=== PATIENT | male | born 2000 | race Caucasian/White ===

== ENCOUNTER 2020-10-09 22:14 | Emergency (ER) | payer BC ==
[~2020-10-09] VITALS: Ht 178 cm; Wt 70.3 kg
[2020-10-09] MEDS ORDERED: NS IV 1000 ML 1,000 ML IV SCH (22:45)
--- NOTE | 2020-10-09 22:46 | ED Abdominal Pain ---
General Chief Complaint: Abdominal/GI Problems Stated Complaint: ABD PAIN, RECTAL BLEEDING Nursing Triage Note: c/o lower abdominal pain since monday, nausea/emisis x1, diarrhea/blood in stool. Sepsis Screen: No Definite Risk Source of Information: Patient, Family Exam Limitations: No Limitations History of Present Illness Date Seen by Provider: October 09, 2020 Time Seen by Provider: 22:30 Initial Comments Patient is a 19-year-old male who presents to the emergency department today with a chief complaint of abdominal pain, black stool and bloody stool onset 3 days ago. Patient states on Monday he started having abdominal cramping and pain. He has had some nausea and vomiting to go along with this. He denies bloody emesis or coffee-ground emesis. No reported fevers or chills. He had in itially black stools followed by bloody stools. He states that his abdominal cramping is settled in the right lower quadrant. He has no history of colitis, Crohn's disease. No significant family history that is contributory. Denies any urinary complaints. Patient states that he had diarrhea "every 10 minutes" throughout the day today. He did have some Bentyl this afternoon for the cramping. All other review of systems reviewed and negative except as stated above. Timing/Duration: 2-3 Days Severity/Quality: Aching, Cramping Location: RLQ Radiation: No Radiation Activities at Onset: None Associated Symptoms: No Heartburn; Nausea/Vomiting Allergies and Home Medications Allergies Coded Allergies: No Known Drug Allergies (Unverified , 10/09/20) Patient Home Medication List Home Medication List Reviewed: Yes Review of Systems Review of Systems Constitutional: see HPI EENTM: No Symptoms Reported Respiratory: No Symptoms Reported Cardiovascular: No Symptoms Reported Gastrointestinal: Abdomen Distended, Abdominal Pain, Diarrhea, Nausea, Rectal Bleeding, Vomiting Genitourinary: No Symptoms Reported Musculoskeletal: no symptoms reported Skin: no symptoms reported All Other Systems Reviewed Negative Unless Noted: Yes Past Qlhukqs-Ioqwaz-Uzexwu Hx Patient Social History Alcohol Use: Denies Use Smoking Status: Never a Smoker 2nd Hand Smoke Exposure: No Recent Infectious Disease Expo: No Recent Hopitalizations: No Immunizations Up To Date Tetanus Booster (TDap): Unknown Seasonal Allergies Seasonal Allergies: No Past Medical History Surgeries: No Respiratory: No Cardiac: No Neurological: No Genitourinary: No Gastrointestinal: No Musculoskeletal: No Endocrine: No HEENT: No Cancer: No Psychosocial: No Integumentary: No Blood Disorders: No Physical Exam Vital Signs Vital Signs - First Documented 10/09/20 22:20 Temp 36.4 Pulse 76 Resp 16 B/P (MAP) 130/83 (99) Pulse Ox 98 O2 Delivery Room Air Capillary Refill : Less Than 3 Seconds Height/Weight/BMI Height: '" Weight: lbs. oz. kg; 22.00 BMI Method: General Appearance: WD/WN, no apparent distress HEENT: PERRL/EOMI Neck: normal inspection Respiratory: lungs clear, normal breath sounds, no respiratory distress, no accessory muscle use Cardiovascular: regular rate, rhythm Gastrointestinal: soft, abnormal bowel sounds (Hypoactive), rebound (Right lower quadrant), tenderness Rectal: normal exam, normal rectal tone, heme negative stool (No stool is actually palpated in the rectal vault; no masses external or internal are palpated) Back: normal inspection Male: normal genitalia Neurologic/Psychiatric: alert, normal mood/affect, oriented x 3 Skin: normal color, warm/dry Progress/Results/Core Measures Results/Orders Lab Results Laboratory Tests Test 10/09/20 22:45 Range/Units White Blood Count 9.3 4.3-11.0 10^3/uL Red Blood Count 5.11 4.30-5.52 10^6/uL Hemoglobin 15.1 13.3-17.7 g/dL Hematocrit 44 40-54 % Mean Corpuscular Volume 87 80-99 fL Mean Corpuscular Hemoglobin 30 25-34 pg Mean Corpuscular Hemoglobin Concent 34 32-36 g/dL Red Cell Distribution Width 11.9 10.0-14.5 % Platelet Count 296 130-400 10^3/uL Mean Platelet Volume 9.5 9.0-12.2 fL Immature Granulocyte % (Auto) 0 % Neutrophils (%) (Auto) 58 42-75 % Lymphocytes (%) (Auto) 27 12-44 % Monocytes (%) (Auto) 12 0-12 % Eosinophils (%) (Auto) 2 0-10 % Basophils (%) (Auto) 1 0-10 % Neutrophils # (Auto) 5.4 1.8-7.8 10^3/uL Lymphocytes # (Auto) 2.6 1.0-4.0 10^3/uL Monocytes # (Auto) 1.1 H 0.0-1.0 10^3/uL Eosinophils # (Auto) 0.2 0.0-0.3 10^3/uL Basophils # (Auto) 0.1 0.0-0.1 10^3/uL Immature Granulocyte # (Auto) 0.0 0.0-0.1 10^3/uL Sodium Level 140 135-145 MMOL/L Potassium Level 3.4 L 3.6-5.0 MMOL/L Chloride Level 102 98-107 MMOL/L Carbon Dioxide Level 26 21-32 MMOL/L Anion Gap 12 5-14 MMOL/L Blood Urea Nitrogen 9 7-18 MG/DL Creatinine 1.10 0.60-1.30 MG/DL Estimat Glomerular Filtration Rate > 60 BUN/Creatinine Ratio 8 Glucose Level 128 H 70-105 MG/DL Calcium Level 9.4 8.5-10.1 MG/DL My Orders Orders - MARIA E SILVA MD Ed Iv/Invasive Line Start (10/09/20 22:38) Cbc With Automated Diff (10/09/20 22:38) Basic Metabolic Panel (10/09/20 22:38) Ns Iv 1000 Ml (Sodium Chloride 0.9%) (10/09/20 22:45) Ct Abdomen/Pelvis W (10/09/20 22:38) Iohexol Injection (Omnipaque 350 Mg/Ml 1 (10/09/20 23:00) Received Contrast (Hold Metformin- Contr (10/09/20 23:00) Ns (Ivpb) (Sodium Chloride 0.9% Ivpb Bag (10/09/20 23:00) Occult Blood Stool (10/09/20 22:57) Medications Given in ED Current Medications Medications Dose Ordered Sig/Michelle Route Start Time Stop Time Status Last Admin Dose Admin Iohexol 100 ml ONCE ONCE IV 10/09/20 23:00 10/09/20 23:01 DC 10/09/20 23:07 92 ML Sodium Chloride 100 ml ONCE ONCE IV 10/09/20 23:00 10/09/20 23:01 DC 10/09/20 23:07 80 ML Vital Signs/I&O 10/09/20 22:20 Temp 36.4 Pulse 76 Resp 16 B/P (MAP) 130/83 (99) Pulse Ox 98 O2 Delivery Room Air Blood Pressure Mean: 99 Progress Progress Note : Time: 23:41 Progress Note Patient seen and examined, 19-year-old with a history of abdominal cramping and bloody stools. Evaluation today includes a physical exam, CBC, chemistry, CT scan of the abdomen pelvis with IV contrast. Patient CT demonstrates thickened cecum and ascending colon concerning for colitis. He has mildly thickened tr ansverse to sigmoid colon which may be underdistention versus continuation of colitis. No pneumatosis or free air is demonstrated. No evidence of bowel obstruction. Patient's vital signs are stable. He does not have a significant leukocytosis or any abnormal chemistry findings. His exam is fairly benign. He does have tenderness specifically in the right lower quadrant of the abdomen. He will be treated as an outpatient with Lay and Arun. He is advised to follow-up with a primary care physician. He is given good return precautions. Both he and his verbalized agreement with the plan of care and are comfortable with the plan of care. All questions are sought and answered. Patient is stable for discharge. Departure Impression Primary Impression: Abdominal pain Qualified Codes: R10.31 - Right lower quadrant pain Additional Impression: Colitis Disposition: HOME, SELF-CARE Condition: Stable Departure-Patient Inst. Decision time for Depature: 23:43 Referrals: NO,LOCAL PHYSICIAN (PCP/Family) Primary Care Physician Patient Instructions: Colitis Add. Discharge Instructions: Please drink lots of fluids so that you stay well-hydrated. Take the antibiotics as directed over the course of the next week. Use [id number] Aleve or ibuprofen as needed for cramping and pain. Come back to the emergency room if you have worsening pain, fevers, vomiting or any other emergent concerning symptoms develop. Scripts Ciprofloxacin HCl (Ciprofloxacin HCl) 500 Mg Tablet 500 MG PO BID, #14 TAB Prov: MARIA E SILVA MD 10/09/20 Metronidazole (Flagyl) 500 Mg Tablet 500 MG PO TID for 7 Days, #21 TAB Prov: MARIA E SILVA MD 10/09/20 MARIA E SILVA MD October 09, 2020 22:46
[2020-10-09] MEDS ORDERED: IOHEXOL 350 MG/ML 100 ML (OMNIPAQUE 350) VIAL IV ONE (23:00)
[2020-10-09] MEDS ORDERED: HOLD METFORMIN - RECEIVED CONTRAST 20 ML VIAL IV SCH (23:00)
[2020-10-09] MEDS ORDERED: NS 100 ML (IVPB) BAG IV ONE (23:00)
[2020-10-09 23:03] LABS: BASOPHILS # (AUTO) 0.1 10^3/uL (0.0-0.1); BASOPHILS % (AUTO) 1 % (0-10); EOSINOPHILS # (AUTO) 0.2 10^3/uL (0.0-0.3); EOSINOPHILS % (AUTO) 2 % (0-10); HEMATOCRIT 44 % (40-54); HEMOGLOBIN 15.1 g/dL (13.3-17.7); LYMPHOCYTES # (AUTO) 2.6 10^3/uL (1.0-4.0); LYMPHOCYTES % (AUTO) 27 % (12-44); MEAN CORPUSCULAR HEMOGLOBIN 30 pg (25-34); MEAN CORPUSCULAR HGB CONC 34 g/dL (32-36); MEAN CORPUSCULAR VOLUME 87 fL (80-99); MEAN PLATELET VOLUME 9.5 fL (9.0-12.2); MONOCYTES # (AUTO) 1.1 10^3/uL (0.0-1.0); MONOCYTES % (AUTO) 12 % (0-12); NEUTROPHILS # (AUTO) 5.4 10^3/uL (1.8-7.8); NEUTROPHILS % (AUTO) 58 % (42-75); PLATELET COUNT 296 10^3/uL (130-400); WHITE BLOOD COUNT 9.3 10^3/uL (4.3-11.0)
[2020-10-09 23:15] LABS: CHLORIDE 102 MMOL/L (98-107); POTASSIUM 3.4 MMOL/L (3.6-5.0); SODIUM 140 MMOL/L (135-145)
[2020-10-09 23:16] LABS: CALCIUM 9.4 MG/DL (8.5-10.1); GLUCOSE 128 MG/DL (70-105)
[2020-10-09 23:18] LABS: CARBON DIOXIDE 26 MMOL/L (21-32)
[2020-10-09 23:20] LABS: GFR ESTIMATED > 60
[2020-10-09 23:21] LABS: BUN/CREATININE RATIO 8
[2020-10-09] MEDS ORDERED: CIPR500T5 PO (23:55)
[2020-10-09] MEDS ORDERED: METR500T PO (23:55)
[2020-10-09 23:59] VITALS: BP 114/67
--- NOTE | 2020-10-10 07:27 | Diagnostic Imaging Report ---
EXAMINATION: CT abdomen and pelvis with intravenous contrast. TECHNIQUE: Multiple contiguous axial images were obtained through the abdomen and pelvis after the uneventful administration of intravenous contrast. All CT scans use one or more of the following dose optimizing techniques: automated exposure control, MA and/or KvP adjustment based on patient size and exam type or iterative reconstruction. HISTORY: Abdominal pain. Bloody stools. COMPARISON: None available. FINDINGS: The heart is unremarkable. The included lung bases are clear. The liver, spleen, pancreas, adrenal glands, and kidneys have a normal appearance. There is no pathologically enlarged mesenteric or retroperitoneal adenopathy. There is bowel wall thickening and edema involving the cecum and ascending colon. No evidence of small bowel obstruction. The appendix is is visualized in the right lower quadrant and has a normal appearance. There is no free fluid or free air. No acute osseous abnormalities. Ureters and bladder are grossly normal. There is no free air, loculated collection, or adenopathy in the pelvis. IMPRESSION: 1. Bowel wall thickening and edema involving the cecum and ascending colon, suggestive of colitis. No bowel obstruction, free fluid, or free air. Normal appendix. Agree with overnight report. Dictated by: Dictated on workstation # [id number]
== END 2020-10-10 00:03 | disposition home or self-care (01) ==
LOC: ER 22:17
DX: K52.9 Noninfective gastroenteritis and colitis, unspecified (principal)
CPT/HCPCS: 36415; 74177; 80048; 82274; 85025